=== PATIENT | female | born 1970 | race Caucasian/White ===

== ENCOUNTER 2020-04-07 09:00 | Emergency (ER) | payer BC ==
[~2020-04-07] VITALS: Ht 162.6 cm; Wt 116.2 kg
[2020-04-07 09:05] VITALS: BP 151/99
[2020-04-07] MEDS ORDERED: ORPHENADRINE CITRATE 60 MG/2 ML VIAL. IM ONE (09:30)
[2020-04-07] MEDS ORDERED: DEXAMETHASONE SOD PHOS 10 MG/ML VIAL IM ONE (09:30)
--- NOTE | 2020-04-07 09:35 | PHYS DOC ---
General Adult EDM: Chief Complaint: UPPER EXTREMITY PAIN HPI: HPI: 49-year-old female presents with right shoulder pain. She has been having increasing pain for last few days. She denies any trauma, falls, or overuse. The pain is a cramping across her supraspinatus as well as her posterior axilla. She is not sure why the pain is getting worse. It is an 8 out of 10 at this time. She has had intermittent problems with her right shoulder blade and axilla area. She further reports some numbness in the right thumb. She denies history of serious injuries to her shoulder or neck. No surgical history in this area. Review of Systems: Review of Systems: Constitutional: Denies fever or chills Eyes: Denies change in visual acuity HENT: Denies nasal congestion or sore throat Respiratory: Denies cough or shortness of breath Cardiovascular: Denies chest pain or edema GI: Denies abdominal pain, nausea, vomiting, bloody stools or diarrhea : Denies dysuria Musculoskeletal: Right shoulder pain Integument: Denies rash Neurologic: Denies headache, right thumb numbness Endocrine: Denies polyuria or polydipsia Lymphatic: Denies swollen glands Psychiatric: Denies depression or anxiety Heart Score: Risk Factors: Risk Factors: DM, Current or recent (<one month) smoker, HTN, HLP, family history of CAD, obesity. Risk Scores: Score 0 - 3: 2.5% MACE over next 6 weeks - Discharge Home Score 4 - 6: 20.3% MACE over next 6 weeks - Admit for Clinical Observation Score 7 - 10: 72.7% MACE over next 6 weeks - Early Invasive Strategies Allergies: Allergies: Allergies Uncoded Allergies Type Severity Reaction Last Updated Verified opioids Allergy Unknown 04/07/20 Physical Exam: PE: Constitutional: Well developed, well nourished, no acute distress, non-toxic appearance. [] HENT: Normocephalic, atraumatic, bilateral external ears normal, oropharynx moist, no oral exudates, nose normal. [] Eyes: PERRLA, EOMI, conjunctiva normal, no discharge. [] Neck: Normal range of motion, no tenderness, supple, no stridor. [] Cardiovascular: Heart rate regular rhythm, no murmur [] Lungs & Thorax: Bilateral breath sounds clear to auscultation [] Abdomen: Bowel sounds normal, soft, no tenderness, no masses, no pulsatile ma sses. [] Skin: Warm, dry, no erythema, no rash. [] Back: No tenderness, no CVA tenderness. [] Extremities: Tenderness over the right supraspinatus and along the medial border of the scapula with muscle spasm of muscles in this area. [] Neurologic: Alert and oriented X 3, normal motor function, normal sensory function, no focal deficits noted. [] Psychologic: Affect normal, judgement normal, mood normal. [] EKG: EKG: [] Radiology/Procedures: Radiology/Procedures: [] Impressions: CERVICAL SPINE 2-3V Clinical Indication: Reason: right shoulder pain, numbness PAIN FOR 5 YEARS Comparison: None. Findings: AP, open-mouth, lateral, and swimmer's views. There is mild grade 1 anterolisthesis of C3 on C4. The alignment is otherwise maintained. There is disc space narrowing and degenerative endplate spurring of C5/C6 and C6/C7. Other cervical spine levels are less pronounced. The prevertebral soft tissues are normal. There is facet hypertrophy, most apparent on the right at C3/C4. The lung apices are clear. Lateral masses of C1 are symmetric. No obvious abnormality of the odontoid, evaluation is limited due to bony overlap. No acute fracture is seen. IMPRESSION: Degenerative spondylosis of C5/C6 and C6/C7. Electronically signed by: Jeff Vasquez MD (04/07/2020 9:53 AM) [id number] DICTATED AND SIGNED BY: JEFF VASQUEZ MD DATE: 04/07/20 0953 CC: EDWIN NGUYỄN DO; PCP,NO ~ Course & Med Decision Making: Course & Med Decision Making Pertinent Labs and Imaging studies reviewed. (See chart for details) I will give the patient a shot of dexamethasone and Norflex in the emergency room. I will discharge her with Flexeril and 5 more additional days of 50 mg of prednisone. [] Dragon Disclaimer: Rohith Disclaimer: This electronic medical record was generated, in whole or in part, using a voice recognition dictation system. Departure Departure: Impression: Primary Impression: Cervical radicular pain Disposition: 01 HOME/RESIDENCE PRIOR TO ADM Condition: STABLE Referrals: PCP,ELSY (PCP) Patient Instructions: Cervical Radiculopathy, [id number] Scripts Prednisone (PREDNISONE) 50 Mg Tablet 1 TAB PO DAILY for cervical radiculopathy, #5 TAB Prov: EDWIN NGUYỄN DO 04/07/20 Cyclobenzaprine Hcl (CYCLOBENZAPRINE HCL) 10 Mg Tablet 1 TAB PO TID PRN for MUSCLE SPASMS, #30 TAB Prov: EDWIN NGUYỄN DO 04/07/20 Justification of Admission: Justification of Admission: Justification of Admission Dx: N/A EDWIN NGUYỄN DO Apr 07, 2020 09:35
--- NOTE | 2020-04-07 09:56 | RAD ---
CERVICAL SPINE 2-3V Clinical Indication: Reason: right shoulder pain, numbness PAIN FOR 5 YEARS Comparison: None. Findings: AP, open-mouth, lateral, and swimmer's views. There is mild grade 1 anterolisthesis of C3 on C4. The alignment is otherwise maintained. There is disc space narrowing and degenerative endplate spurring of C5/C6 and C6/C7. Other cervical spine levels are less pronounced. The prevertebral soft tissues are normal. There is facet hypertrophy, most apparent on the right at C3/C4. The lung apices are clear. Lateral masses of C1 are symmetric. No obvious abnormality of the odontoid, evaluation is limited due to bony overlap. No acute fracture is seen. IMPRESSION: Degenerative spondylosis of C5/C6 and C6/C7. Electronically signed by: Jeff French MD (04/07/2020 9:53 AM) [id number]
[2020-04-07] MEDS ORDERED: PRED50TA PO (10:15)
[2020-04-07] MEDS ORDERED: CYCL-331 PO (10:15)
== END 2020-04-07 10:30 | disposition home or self-care (01) ==
LOC: ER 09:00
DX: M54.12 Radiculopathy, cervical region (principal); Z88.5 Allergy status to narcotic agent
CPT/HCPCS: 72040; 96372; 99284; J1100; J2360

== ENCOUNTER → 2020-12-18 | Outpatient (CLI) | payer BC ==
[~2020-12-18] MED LIST: CYCL-331 PO; PRED50TA PO
--- NOTE | 2020-12-18 15:42 | RAD ---
XR EXAM OF ANKLE_RIGHT 3VIEWS DATE: 12/18/2020 12:04 PM INDICATION: Pain COMPARISON: None. FINDINGS: Bones: There is no evidence of acute fracture or dislocation. Posterior and plantar calcaneal entheso phytes. Joints: The ankle mortise is congruent. No widening of the distal tibiofibular syndesmosis. Advanced degenerative changes of the talonavicular joint. Miscellaneous: None. IMPRESSION: 1. No acute osseous abnormality. 2. Advanced degenerative changes of the talonavicular joint. 3. Calcaneal enthesophytes. Electronically signed by: Gregory Wesley MD (12/18/2020 3:39 PM) [id number]
== END ==
LOC: PMG 11:50
PROVIDERS: ATTEND Physician Assistant
DX: M19.071 Primary osteoarthritis, right ankle and foot (principal); M77.31 Calcaneal spur, right foot
CPT/HCPCS: 73610

== ENCOUNTER → 2021-03-11 | Outpatient (CLI) | payer BC ==
[~2021-03-11] MED LIST changes: +EXEN2AUT SQ; +LISI10TA16 PO; +METF500T16 PO
== END ==
LOC: LAB 12:18
PROVIDERS: ATTEND Nurse Anesthetist, Certified Registered
DX: Z01.812 Encounter for preprocedural laboratory examination (principal); K62.5 Hemorrhage of anus and rectum; R13.10 Dysphagia, unspecified; Z20.822 Contact with and (suspected) exposure to COVID-19
CPT/HCPCS: U0003

== ENCOUNTER → 2021-03-13 | Day surgery (SDC) | payer BC ==
[~2021-03-13] MED LIST changes: +IPRATRPIUM/ALBUTEROL 0.5/2.5MG 3 ML NEBU. NEB PRN; +IV RINGERS SOLUTION,LACTATED 1,000 ML IV SCH; +KETAMINE HCL IN NACL, ISO-OSM 50 MG/5 ML SYRINGE ONE; +LIDOCAINE 2% PF 5 ML VIAL. ONE; +MIDAZOLAM HCL PF 2 MG/2 ML VIAL. IV ONE; +ONDANSETRON PF 4 MG/2 ML VIAL. IV PRN; +PROPOFOL 10,000 MCG/ML (20ML) VIAL IV ONE; +SUCCINYLCHOLINE 200 MG/10 ML VIAL. ONE
[2021-03-13 14:09] VITALS: BP 130/94
--- NOTE | 2021-03-18 18:06 | PATHOLOGY ---
[facility] Accession Number: [id number] . 01 Material submitted: . PART A: stomach - ANTRUM BIOPSY PART B: colon - ASCENDING COLON BIOPSY. Modifiers: ascending . 01 Clinical history: . EGD AND COLONOSCOPY DYSPHAGIA AND RECTAL BLEED EGD WITH DILATION AND BIOPSY . 02 Diagnosis: A. Gastric biopsies, antrum: - Congestion and minimal chronic inflammation. . B. Colon biopsies, ascending colon: - Tubular adenoma. (JPM:joey; 03/18/2021) [facility] 03/18/2021 1159 Local . 02 Comment: Sections of the gastric antral biopsy show congestion and minimal chronic inflammation. A properly controlled immunoperoxidase stain for Helicobacter is negative for Helicobacter organisms. . Sections of the ascending colon biopsy reveal a tubular adenoma showing no high-grade dysplasia or evidence of malignancy. (JPM:joey; 03/18/2021) . Special stain performed: Immunoperoxidase for Helicobacter on A1 . 02 Electronically signed: . Marcos Martinez MD, Pathologist NPI- [id number] . 01 Gross description: . A. The specimen is received in formalin, labeled "Rahel Feliica, antrum biopsy" received as 2 fragments of soft coy tissue measuring up to 0.4 cm. Entirely submitted in A1. . B. The specimen is received in formalin, labeled "Rahel Felicia, ascending colon biopsy" received as 2 fragments of soft coy tissue measuring up to 0.3 cm. Entirely submitted in B1. ([facility]; 03/17/2021) . [facility]/MOIRA 03/17/2021 1816 Local . 02 Pathologist provided ICD-10: K31.89, K29.50, D12.2 . 02 CPT . 297084, 590523, E01725 Specimen Comment: A courtesy copy of this report has been sent to [phone], [phone] Specimen Comment: [id number] Specimen Comment: Report sent to / DR ZAMARRIPA Performed at: 01 [facility] [address] [id number] MD Atif Cruz MD Phone: [phone] Performed at: 02 [facility] [address] [place], [place] [id number] MD Marcos Martinez MD Phone: [phone]
== END | disposition home or self-care (01) ==
LOC: SURG 11:03
PROVIDERS: ATTEND Internal Medicine Gastroenterology
DX: K62.5 Hemorrhage of anus and rectum (principal); R13.10 Dysphagia, unspecified; R12 Heartburn; K21.9 Gastro-esophageal reflux disease without esophagitis; K31.89 Other diseases of stomach and duodenum; K29.50 Unspecified chronic gastritis without bleeding; D12.2 Benign neoplasm of ascending colon; K63.89 Other specified diseases of intestine; K44.9 Diaphragmatic hernia without obstruction or gangrene; K22.2 Esophageal obstruction; E11.9 Type 2 diabetes mellitus without complications; I10 Essential (primary) hypertension; Z80.0 Family history of malignant neoplasm of digestive organs; Z79.899 Other long term (current) drug therapy; Z88.5 Allergy status to narcotic agent; Z79.84 Long term (current) use of oral hypoglycemic drugs; Z98.890 Other specified postprocedural states; F41.9 Anxiety disorder, unspecified
CPT/HCPCS: 43239; 43450; 45380; 82947; 88305; 88342; J0330; J2001; J2704; 43249

== ENCOUNTER 2021-04-11 16:52 | Emergency (ER) | payer BC ==
[~2021-04-11] VITALS: Ht 162.6 cm; Wt 116.2 kg
[~2021-04-11 16:52] MED LIST changes: -IPRATRPIUM/ALBUTEROL 0.5/2.5MG 3 ML NEBU. NEB PRN; -IV RINGERS SOLUTION,LACTATED 1,000 ML IV SCH; -KETAMINE HCL IN NACL, ISO-OSM 50 MG/5 ML SYRINGE ONE; -LIDOCAINE 2% PF 5 ML VIAL. ONE; -MIDAZOLAM HCL PF 2 MG/2 ML VIAL. IV ONE; -ONDANSETRON PF 4 MG/2 ML VIAL. IV PRN; -PROPOFOL 10,000 MCG/ML (20ML) VIAL IV ONE; -SUCCINYLCHOLINE 200 MG/10 ML VIAL. ONE
[2021-04-11] MEDS ORDERED: IV NORMAL SALINE 1,000ML 1,000 ML IV ONE (18:30)
[2021-04-11] MEDS ORDERED: ACETAMINOPHEN 500 MG TABLET PO ONE (18:30)
--- NOTE | 2021-04-11 18:30 | PHYS DOC ---
Past History Past Medical History: No Pertinent History, Diabetes Past Surgical History: Cholecystectomy, Hysterectomy, Tubal ligation Alcohol Use: None General Adult EDM: Chief Complaint: POST-OP PROBLEM HPI: HPI: Patient is a 50-year-old female presents with left lower abdominal pain that radiates to her left flank since yesterday. Patient was seen at urgent care and referred to the emergency room. Patient states "I cannot take any opiates because of allergic and I cannot take ibuprofen for a year, so I smoke weed for pain control". Patient states that marijuana has not helped with her pain. Denies pain with urination or frequency. Denies anything making the pain better or worse. Patient states "I have been having trouble going pee". Patient states "I have been seeing Dr. Luciano for the last year and having labs drawn every 6 months due to abnormal labs". "On Tuesday had a colonoscopy and had a polyp removed but I have not gotten my results back yet". Patient has a history of diabetes. Denies fevers. Review of Systems: Review of Systems: Constitutional: Denies fever or chills Eyes: Denies change in visual acuity HENT: Denies nasal congestion or sore throat Respiratory: Denies cough or shortness of breath Cardiovascular: Denies chest pain or edema GI: Reports left lower abdominal pain. Denies nausea/vomiting/diarrhea : Denies dysuria Musculoskeletal: Reports left flank pain Integument: Denies rash Neurologic: Denies headache, focal weakness or sensory changes Endocrine: Denies polyuria or polydipsia Lymphatic: Denies swollen glands Psychiatric: Denies depression or anxiety Allergies: Allergies: Allergies Uncoded Allergies Type Severity Reaction Last Updated Verified opioids Allergy Unknown 04/07/20 Physical Exam: PE: Constitutional: Well developed, well nourished, no acute distress, non-toxic appearance. [] HENT: Normocephalic, atraumatic, bilateral external ears normal, oropharynx moist, no oral exudates, nose normal. [] Eyes: PERRLA, EOMI, conjunctiva normal, no discharge. [] Neck: Normal range of motion, no tenderness, supple, no stridor. [] Cardiovascular:Heart rate regular rhythm, no murmur [] Lungs & Thorax: Bilateral breath sounds clear to auscultation [] Abdomen: Bowel sounds normal, soft, left lower abdomen tenderness Skin: Warm, dry, no erythema, no rash. [] Back: No tenderness, left CVA tenderness. [] Extremities: No tenderness, no cyanosis, no clubbing, ROM intact, no edema. [] Neurologic: Alert and oriented X 3, normal motor function, normal sensory funct ion, no focal deficits noted. [] Psychologic: Affect normal, judgement normal, mood normal. [] Current Patient Data: Vital Signs: Vital Signs Date Time Temp Pulse Resp B/P (MAP) Pulse Ox O2 Delivery O2 Flow Rate FiO2 04/11/21 17:01 98.0 95 20 119/74 (89) 98 Room Air EKG: EKG: [] Radiology/Procedures: Radiology/Procedures: []CT ABDOMEN+PELVIS WO dated 04/11/2021 6:34 PM Indication:Reason: LEFT SIDED FLANK AND ABDOMINAL PAIN / Spl. Instructions: / History: Comparison: No comparison is available. Technique: Helical noncontrast images were performed. One or more of the following individualized dose reduction techniques were uti lized for this examination: 1. Automated exposure control 2. Adjustment of the mA and/or kV according to patient size 3. Use of iterative reconstruction technique Findings: The lung bases are clear. There is a rounded area of decreased density located superiorly in the liver. Internal density is about 42 Hounsfield units. This measures about 1.3 cm across. No other focal liver parenchymal abnormality is seen. The spleen appears normal. The kidneys show no apparent mass. There is a 2 mm calcification in the mid left kidney. There is no apparent ureteral stone or obstruction. The adrenal glands are not enlarged. The pancreas appears normal. No retroperitoneal or mesenteric adenopathy is seen. There is no apparent abdominal mass or inflammatory process. The stomach was moderately distended with fluid and debris at the time of the scan. Images through the pelvis show no abnormality of the distal ureters or bladder. No pelvic or inguinal adenopathy is seen. There apparently has been a hysterectomy. There is no apparent pelvic mass or inflammatory process. IMPRESSION: There is a tiny left renal calculus. No ureteral stone or obstruction is seen. There is no other apparent acute abnormality. Electronically signed by: Rambo Adams Jr., MD (04/11/2021 7:05 PM) [facility] Heart Score: C/O Chest Pain: No Risk Factors: Risk Factors: DM, Current or recent (<one month) smoker, HTN, HLP, family history of CAD, obesity. Risk Scores: Score 0 - 3: 2.5% MACE over next 6 weeks - Discharge Home Score 4 - 6: 20.3% MACE over next 6 weeks - Admit for Clinical Observation Score 7 - 10: 72.7% MACE over next 6 weeks - Early Invasive Strategies Course & Med Decision Making: Course & Med Decision Making Pertinent Labs and Imaging studies reviewed. (See chart for details) [] 50-year-old female presents with left lower abdominal pain that radiates to her left flank. Patient reports that she has been having trouble urinating. Denies pain with urination. Patient reports having a polyp removed on Tuesday but has not gotten results of biopsy yet. CT of abdomen and pelvis was positive for a nonobstructing, renal calculi. Patient given Flomax while in the emergency room and sent home with a prescription. Instructed patient to call her PCP on Tuesday to make a follow-up appointment. Patient to take Tylenol for discomfort. Patient is unable to take NSAIDs or opiates. Patient given return precautions. Patient is appreciative and okay with discharge plan. patient is hemodynamically stable and able to ambulate on her own of the emergency room. doUdealon Disclaimer: TRIBAX Disclaimer: This electronic medical record was generated, in whole or in part, using a voice recognition dictation system. Departure Departure: Impression: Primary Impression: Kidney calculi Disposition: HOME / SELF CARE / HOMELESS Condition: STABLE Referrals: CARRIE ZAMARRIPA (PCP) Patient Instructions: Kidney Stones, Rpro-sa-Aptc Additional Instructions: You were seen in the emergency room for lower abdominal pain and flank pain. CT of your abdomen pelvis showed a small, nonobstructing kidney stone. This may be the cause of the pain that you are having. I am sending you home with a prescription for Flomax. Please take that as directed. You can also take Tylenol at home for discomfort. Please follow-up with your PCP for further management EMERGENCY DEPARTMENT GENERAL DISCHARGE INSTRUCTIONS Thank you for coming to [facility] (ED) today and trusting us with you care. We trust that you had a positivie experience in our Emergency Department. If you wish to speak to the department management, you may call the director at [phone]. YOUR FOLLOW UP INSTRUCTIONS ARE FOLLOWS: 1. Do you have a private Doctor? If you do not have a private doctor, please ask for a resource list of physicians or clinics that may be able to assist you with follow up care. 2. The Emergency Physician has interpreted your x-rays. The X-Ray specialist will also review them. If there is a change in the findings, you will be notified in 48 hours when at all possible. 3. A lab test or culture has been done, your results will be reviewed and you will be notified if you need a change in treatment. ADDITIONAL INSTRUCTIONS AND INFORMATION: 1. Your care today has been supervised by a physician who is specially trained in emergency care. Many problems require more than one evaluation for a complete diagnosis and treatment. We recommend that you schedule your follow up appointment as recommended to ensure complete treatment of you illness or injury. If you are unable to obtain follow up care and continue to have a problem, or if your condition worsens, we recommend that you return to the ED. 2. We are not able to safely determine your condition over the phone nor are we able to give sound medical advice over the phone. For these safety reasons, if you call for medical advice we will ask you to come to the ED for further evaluation. 3. If you have any questions regarding these discharge instructions please call the ED at [phone]. SAFETY INFORMATION: In the interest of safety, wellness, and injury prevention; we encourage you to wear your sealbelt, if you smoke; quite smoking, and we encourage family to use a pro tective helmet for bicycling and other sporting events that present an increased risk for head injury. IF YOUR SYMPTOMS WORSEN OR NEW SYMPTOMS DEVELOP, OR YOU HAVE CONCERNS ABOUT YOUR CONDITION; OR IF YOUR CONDITION WORSENS WHILE YOU ARE WAITING FOR YOUR FOLLOW UP APPOINTMENT; EITHER CONTACT YOUR PRIMARY CARE DOCTOR, THE PHYSICIAN WHOSE NAME AND NUMBER YOU WERE GIVEN, OR RETURN TO THE ED IMMEDIATELY. Scripts Tamsulosin Hcl (FLOMAX) 0.4 Mg Cap.er.24h 1 CAP PO DAILY for kidney stone for 14 Days, #14 CAP 0 Refills Prov: MANFRED NATH APRN 04/11/21 MANFRED NATH APRN Apr 11, 2021 18:30
[2021-04-11 18:56] LABS: BASO # 0.1 x10^3/uL (0.0-0.2); BASO % 1 % (0-3); EOS # 0.3 x10^3/uL (0.0-0.7); EOS % 3 % (0-3); HEMATOCRIT 39.8 % (36.0-47.0); LYMPH # 3.3 x10^3/uL (1.0-4.8); LYMPH % 27 % (24-48); MEAN CORPUSCULAR HEMOGLOBIN 28 pg (25-35); MEAN CORPUSCULAR HGB CONC 33 g/dL (31-37); MEAN CORPUSCULAR VOLUME 84 fL (79-100); MONO # 0.8 x10^3/uL (0.0-1.1); MONO % 6 % (0-9); NEUT # 7.6 x10^3uL (1.8-7.7); NEUT % 63 % (31-73); PLATELET COUNT 339 x10^3/uL (140-400); RED BLOOD COUNT 4.72 x10^6/uL (3.50-5.40); WHITE BLOOD COUNT 12.1 x10^3/uL (4.0-11.0)
[2021-04-11 19:04] LABS: ALBUMIN 3.2 g/dL (3.4-5.0); ALBUMIN/GLOBULIN RATIO 1.1 (1.0-1.7); CALCIUM 8.6 mg/dL (8.5-10.1); CREATININE 0.9 mg/dL (0.6-1.0); GFR 66.5; POTASSIUM 3.8 mmol/L (3.5-5.1); TOTAL BILIRUBIN 0.1 mg/dL (0.2-1.0); TOTAL PROTEIN 6.2 g/dL (6.4-8.2)
--- NOTE | 2021-04-11 19:07 | RAD ---
CT ABDOMEN+PELVIS WO dated 04/11/2021 6:34 PM Indication:Reason: LEFT SIDED FLANK AND ABDOMINAL PAIN / Spl. Instructions: / History: Comparison: No comparison is available. Technique: Helical noncontrast images were performed. One or more of the following individualized dose reduction techniques were utilized for this examinat ion: 1. Automated exposure control 2. Adjustment of the mA and/or kV according to patient size 3. Use of iterative reconstruction technique Findings: The lung bases are clear. There is a rounded area of decreased density located superiorly in the live r. Internal density is about 42 Hounsfield units. This measures about 1.3 cm across. No other focal l iver parenchymal abnormality is seen. The spleen appears normal. The kidneys show no apparent mass. T here is a 2 mm calcification in the mid left kidney. There is no apparent ureteral stone or obstructi on. The adrenal glands are not enlarged. The pancreas appears normal. No retroperitoneal or mesenteri c adenopathy is seen. There is no apparent abdominal mass or inflammatory process. The stomach was mo derately distended with fluid and debris at the time of the scan. Images through the pelvis show no abnormality of the distal ureters or bladder. No pelvic or inguinal adenopathy is seen. There apparently has been a hysterectomy. There is no apparent pelvic mass or in flammatory process. IMPRESSION: There is a tiny left renal calculus. No ureteral stone or obstruction is seen. There is no other appa rent acute abnormality. Electronically signed by: Rambo Adams Jr., MD (04/11/2021 7:05 PM) [facility]
[2021-04-11 19:51] LABS: BACTERIA,URINE 0 /HPF (0-FEW); BILIRUBIN,URINE NEG (NEG); CLARITY,URINE CLEAR; COLOR,URINE YELLOW; GLUCOSE,URINE NEG (NEG); NITRITE,URINE NEG (NEG); RBC,URINE 0 /HPF (0-2); SQUAMOUS EPITHELIAL CELL,UR FEW /LPF; UROBILINOGEN,URINE 0.2 mg/dL (0.2 mg/dL); WBC,URINE 0 /HPF (0-4)
[2021-04-11] MEDS ORDERED: TAMS0.4C97 PO (20:11)
[2021-04-11] MEDS ORDERED: TAMSULOSIN 0.4 MG CAP.ER.24H. PO ONE (20:15)
[2021-04-11 20:20] VITALS: BP 125/84
== END 2021-04-11 20:20 | disposition home or self-care (01) ==
LOC: ER 16:52
DX: N20.0 Calculus of kidney (principal); E11.9 Type 2 diabetes mellitus without complications; Z90.49 Acquired absence of other specified parts of digestive tract; Z90.710 Acquired absence of both cervix and uterus; Z98.51 Tubal ligation status
CPT/HCPCS: 36415; 74176; 80053; 81001; 82947; 83690; 85025; 96360; 99284; J7030

== ENCOUNTER → 2021-11-10 | Outpatient (CLI) | payer BC ==
[~2021-11-10] MED LIST changes: -CYCL-331 PO; +CYCL10TA19 PO; +TAMS0.4C97 PO
--- NOTE | 2021-11-11 08:22 | RAD ---
BILATERAL DIGITAL SCREENING 2-D AND 3-D MAMMOGRAM INDICATION: Routine screening. COMPARISON: None Interpretation was made using CAD. FINDINGS: Breast Density: B RIGHT BREAST: No suspicious masses, calcifications or areas of architectural distortion are seen. A n odule in the outer breast has configuration of a lymph node. LEFT BREAST: No suspicious masses, calcifications or areas of architectural distortion are seen. IMPRESSION: 1. No imaging evidence of malignancy. ASSESSMENT: BI-RADS 1. Negative. RECOMMENDATION: Routine annual screening mammogram. The facility will notify the patient of the results via mail. Patient information will be entered int o the mammography reminder system with a target recall date for the next mammogram. A reminder letter will be generated by the facility. Electronically signed by: Rambo Adams Jr., MD (11/11/2021 8:20 AM) [id number]
== END ==
LOC: MAMMO 14:48
PROVIDERS: ATTEND Physician Assistant
DX: Z12.31 Encounter for screening mammogram for malignant neoplasm of breast (principal)
CPT/HCPCS: 77063; 77067